=== PATIENT | male | born 1960 | race Caucasian/White ===

== ENCOUNTER → 2018-03-10 | Outpatient (CLI) | payer BC ==
[~2018-03-10] MED LIST: no meds per pt.
== END ==
LOC: STAR 13:37
PROVIDERS: ATTEND Surgery
DX: Z02.9 Encounter for administrative examinations, unspecified (principal)

== ENCOUNTER 2018-03-17 14:03 | Day surgery (SDC) | payer BC ==
[2018-03-10 14:38] VITALS: BP 129/88
[~2018-03-17] VITALS: Ht 172.7 cm; Wt 81.5 kg
[~2018-03-17 14:03] MED LIST changes: +CEFAZOLIN 1,000 MG ONE; +GLYCOPYRROLATE 0.2MG/1ML, 5ML ONE; +NEOSTIGMINE 1 MG/ML, 10ML ONE; +PHENYLEPHRINE 10 MG/ML ONE; +PROPOFOL 10 MG/ML, 20ML ONE; +ROCURONIUM 10 MG/ML,10ML ONE
[2018-03-17] MEDS ORDERED: LACTATED RINGERS 1,000 ML IV SCH ×4 (14:40→20:00)
[2018-03-17] MEDS ORDERED: FAMOTIDINE 20 MG TABLET PO ONE (15:00)
[2018-03-17] MEDS ORDERED: GABAPENTIN 300 MG CAPSULE PO ONE (15:00)
[2018-03-17] MEDS ORDERED: ACETAMINOPHEN 500 MG TABLET PO ONE (15:00)
[2018-03-17] MEDS ORDERED: TAMSULOSIN 0.4 MG CAP.ER.24H PO ONE (15:00)
[2018-03-17] MEDS ORDERED: METOCLOPRAMIDE 10MG TABLET PO ONE (15:00)
[2018-03-17 15:14] LABS: AMPHETAMINE SCREEN, URINE Negative (Negative); BARBITURATE SCREEN, URINE Negative (Negative); BENZODIAZEPINE SCREEN, URINE Negative (Negative); CANNABINOID SCREEN, URINE Negative (Negative); COCAINE SCREEN, URINE Negative (Negative); METHADONE SCREEN, URINE Negative (Negative); OPIATE SCREEN, URINE Negative (Negative)
[2018-03-17] MEDS ORDERED: BUPIVACAINE 0.25% ONE (15:46)
[2018-03-17] MEDS ORDERED: FENTANYL PF 250 MCG/5ML ONE (17:15)
[2018-03-17] MEDS ORDERED: MIDAZOLAM 1 MG/ML, 2ML ONE (17:15)
[2018-03-17] MEDS ORDERED: BUPIVACAINE/PF-EPI 0.25% 1:200K IM ONE (17:48)
[2018-03-17] MEDS ORDERED: ALBUTEROL/IPRATROPIUM 2.5MG/0.5MG, 3 ML NPPB PRN (18:30)
[2018-03-17] MEDS ORDERED: HYDROmorphone 1 MG/ML, 1ML IV PRN (18:30)
[2018-03-17] MEDS ORDERED: OXYcodone 5 MG/5 ML ORAL.SOL UDC PO PRN (18:30)
[2018-03-17] MEDS ORDERED: PROMETHAZINE 25 MG/ML, 1ML IV PRN (18:30)
[2018-03-17] MEDS ORDERED: LABETALOL 5MG/ML, 20ML IV PRN (18:30)
[2018-03-17] MEDS ORDERED: DIAZEPAM 5 MG/ML, 2ML IVPush PRN (18:30)
[2018-03-17] MEDS ORDERED: hydrALAzine 20 MG/ML, 1ML IV PRN (18:30)
[2018-03-17] MEDS ORDERED: HALOPERIDOL 5 MG/ML IV PRN (18:30)
[2018-03-17] MEDS ORDERED: MEPERIDINE/PF 25MG/0.5ML IVPush PRN (18:30)
[2018-03-17] MEDS ORDERED: OXYcodone 5 MG/5 ML ORAL.SOL UDC ONE (18:32)
[2018-03-17] MEDS ORDERED: FENTANYL PF 100 MCG/2ML ONE (18:38)
[2018-03-17] MEDS: FENTANYL PF 100 MCG/2ML IV PRN ×2 (18:39→18:55)
[2018-03-17] MEDS ORDERED: OXYcodone/APAP 5/325MG TABLET PO PRN (20:00)
[2018-03-17] MEDS ORDERED: ONDANSETRON 2MG/ML, 2ML IVPush PRN (20:00)
[2018-03-17] MEDS ORDERED: MORPHINE SULFATE 4 MG/ML, 1ML IVPush PRN (20:00)
== END 2018-03-17 22:00 | disposition home or self-care (01) ==
LOC: OR 14:03 → 4NOR 19:23 → OR 22:00
PROVIDERS: ATTEND Surgery
DX: K40.90 Unilateral inguinal hernia, without obstruction or gangrene, not specified as recurrent (principal); I10 Essential (primary) hypertension; Z72.89 Other problems related to lifestyle; Z87.891 Personal history of nicotine dependence
CPT/HCPCS: 49650; 80307; C1781; J0690; J2250; J2370; J2704; J2710; J3010; J3490; S2900

== ENCOUNTER 2021-04-27 17:28 | Emergency (ER) | payer BC, MEDICAID ==
[~2021-04-27] VITALS: Ht 175.3 cm; Wt 86.9 kg
[~2021-04-27 17:28] MED LIST changes: -CEFAZOLIN 1,000 MG ONE; -GLYCOPYRROLATE 0.2MG/1ML, 5ML ONE; -NEOSTIGMINE 1 MG/ML, 10ML ONE; -PHENYLEPHRINE 10 MG/ML ONE; -PROPOFOL 10 MG/ML, 20ML ONE; -ROCURONIUM 10 MG/ML,10ML ONE
[2021-04-27 17:43] VITALS: BP 148/86
--- NOTE | 2021-04-27 17:54 | NUR ---
ELIOT RN: PT BS 65, GAVE OJ AND WATER
--- NOTE | 2021-04-27 18:15 | NUR ---
PT CAME IN TODAY FOR FEELING WEAK, TIRED AND EPORTS POOR APPETITE. HE DOES REPORT BIG HOMELESS, SLEEPING OUTSIDE AND NOT EATING MUCH WHILE TAKIG HIS METFORMIN. PT WAS GIVEN OJ BY TRIAGE FARHEEN FOR BS OF 66. HER REPORTS FEELINGH MUCH BETTER AFTER OJ. WAITING FOR MD EXAM. REPORT TO CYNDEE FISCHER. HE DNEIS ANY ABDOMINAL PAIN, DIARRHEA, OR VOMITING.
--- NOTE | 2021-04-27 18:41 | NUR ---
PT AMBULATED TO RESTROOM WITH STEADY GAIT TO PROVIDE URINE SAMPLE. UA COLLECTED AND SENT TO LAB. DIET TRAY PROVIDED. DAUGHTER AT BEDSIDE. PT REMOVED ALL MONITORING. PT STATES HE IS FEELING BETTER AFTER OJ AND WATER.
[2021-04-27 18:44] LABS: BASOPHILS % (AUTO) 0 % (0-1); EOSINOPHILS % (AUTO) 0 % (1-7); LYMPHOCYTES % (AUTO) 17 % (22-44); MEAN CORPUSCULAR HEMOGLOBIN 35.5 pg (27.5-34.5); MEAN CORPUSCULAR HGB CONC 34.8 g/dL (33.2-36.2); MEAN PLATELET VOLUME 9.3 fL (7.4-10.4); MONOCYTES % (AUTO) 4 % (2-9); NEUTROPHILS % (AUTO) 78 % (42-75); PLATELET COUNT 87 x10^3/uL (130-400); RED BLOOD COUNT 4.65 x10^6/uL (4.38-5.82); RED CELL DISTRIBUTION WIDTH 15.8 % (9.4-14.8)
[2021-04-27 18:54] LABS: ALBUMIN 4.2 g/dL (3.4-5.0); ANION GAP 20 mmol/L (5-15); CALCIUM 9.1 mg/dL (8.5-10.1); CHLORIDE 96 mmol/L (98-107)
[2021-04-27 19:00] LABS: MICROSCOPIC INDICATED
[2021-04-27 19:01] LABS: ALANINE AMINOTRANSFERASE 63 U/L (12-78); ALKALINE PHOSPHATASE 87 U/L (45-117); BILIRUBIN,TOTAL 1.7 mg/dL (0.2-1.0); CREATININE 0.97 mg/dL (0.7-1.3); TOTAL PROTEIN 9.2 g/dL (6.4-8.2); TROPONIN I 0.025 ng/mL (0.000-0.045)
--- NOTE | 2021-04-27 19:12 | NUR ---
ALL RESULTS ARE BACK AT THIS TIME. CHART UP FOR RECHECK.
--- NOTE | 2021-04-27 20:20 | NUR ---
PT REFUSING REPEAT VITALS. PT TBDC.
== END 2021-04-27 20:49 | disposition home or self-care (01) ==
LOC: ED 20:05
DX: E86.0 Dehydration (principal); E11.649 Type 2 diabetes mellitus with hypoglycemia without coma; F10.20 Alcohol dependence, uncomplicated; I10 Essential (primary) hypertension; I45.10 Unspecified right bundle-branch block; Z87.891 Personal history of nicotine dependence; Y90.0 Blood alcohol level of less than 20 mg/100 ml
CPT/HCPCS: 36415; 71045; 80053; 81001; 82962; 84443; 84484; 85025; 93005; 99285